=== PATIENT | female | born 1960 | race Caucasian/White ===

== ENCOUNTER 2021-07-04 09:02 | Outpatient (CLI) | payer BC ==
[2021-07-04 15:39] LABS: THYROID STIMULATING HORMONE 8.02 uIU/mL (0.34-5.60)
[2021-07-04 15:40] LABS: FREE T3 3.3 pg/mL (2.5-3.9)
[2021-07-04 15:41] LABS: FREE T4 (FREE THYROXINE) 0.86 ng/dL (0.58-1.64)
== END 2021-07-04 09:03 | disposition home or self-care (01) ==
LOC: LAB.S 09:02
PROVIDERS: ATTEND Internal Medicine Endocrinology, Diabetes & Metabolism
DX: E05.00 Thyrotoxicosis with diffuse goiter without thyrotoxic crisis or storm (principal)
CPT/HCPCS: 36415; 84439; 84443; 84481

== ENCOUNTER 2021-08-15 11:31 | Outpatient (CLI) | payer BC ==
--- NOTE | 2021-08-16 11:46 | XRAY Report ---
PROCEDURE: Ankle 3 View RT INDICATIONS: RIGHT ANKLE PAIN TECHNIQUE: 3 views of the ankle were acquired. COMPARISON: None. FINDINGS: Bones: No fractures or dislocations. Ankle mortise is normally aligned. Visualized osseous structu res appear osteopenic. No suspicious bony lesions. Soft tissues: No tibiotalar joint effusion. Achilles tendon appears normal. IMPRESSION: 1. No acute bony abnormality. Reviewed by: Constantino Schumacher MD on 08/16/2021 11:45 AM PDT Approved by: Constantino Schumacher MD on 08/16/2021 11:45 AM PDT Station ID: [id number]
== END 2021-08-15 11:32 ==
LOC: DI.S 11:31
PROVIDERS: ATTEND Physician Assistant Medical
DX: M25.571 Pain in right ankle and joints of right foot (principal)

== ENCOUNTER 2022-01-12 15:32 | Outpatient (CLI) | payer MEDICARE, BC ==
--- NOTE | 2022-01-12 16:46 | XRAY Report ---
PROCEDURE: Foot 3 View BILAT INDICATIONS: BILATERAL FOOT PAIN TECHNIQUE: 6 views of the foot were acquired. COMPARISON: None FINDINGS: Bones: No fractures or dislocations. Osteoarthritic changes are noted throughout bilateral midfoot a nd forefoot joints with joint space narrowing, subchondral sclerosis and cyst formation. Radiolucency involving medial aspect of bilateral distal medial cuneiform adjacent to first. The joints concernin g for subtle erosions in these areas. No suspicious bony lesions. Soft tissues: No tibiotalar joint effusion. Achilles tendon appears normal. IMPRESSION: 1. Midfoot and forefoot joint osteoarthritis. No fracture or dislocation. 2. Finding is concerning for right worse than left erosive changes involving bilateral first TMT join ts possibly related to inflammatory arthropathy. Reviewed by: Scot Link MD on 01/12/2022 4:45 PM PST Approved by: Scot Link MD on 01/12/2022 4:45 PM PST Station ID: [id number]
--- NOTE | 2022-01-12 16:47 | XRAY Report ---
PROCEDURE: Ankle 3 View BILAT INDICATIONS: BILATERAL ANKLE PAIN TECHNIQUE: 3 views of the ankle were acquired. COMPARISON: None FINDINGS: Bones: No fractures or dislocations. Ankle mortise is normally aligned. Mild osteoarthritic change s in bilateral tibiotalar joint with joint space narrowing and subchondral sclerosis. No suspicious b chelsy lesions. Soft tissues: No tibiotalar joint effusion. Achilles tendon appears normal. IMPRESSION: Bilateral ankle mortise is congruent. No ankle fracture or dislocation. No gross soft ti ssue abnormality. Mild lateral tibiotalar joint osteoarthritis. Reviewed by: Scot Link MD on 01/12/2022 4:46 PM PST Approved by: Scot Link MD on 01/12/2022 4:46 PM PST Station ID: [id number]
== END 2022-01-12 15:33 | disposition home or self-care (01) ==
LOC: DI 15:32 → DI.S 15:33
PROVIDERS: ATTEND Podiatrist
DX: M19.072 Primary osteoarthritis, left ankle and foot (principal); M19.071 Primary osteoarthritis, right ankle and foot

== ENCOUNTER 2022-04-23 12:59 | Outpatient (CLI) | payer MEDICARE, BC ==
[2022-04-23 15:13] LABS: FREE T3 3.12 pg/mL (2.5-3.9); THYROID STIMULATING HORMONE 2.88 uIU/mL (0.34-5.60)
[2022-04-23 15:14] LABS: FREE T4 (FREE THYROXINE) 0.75 ng/dL (0.58-1.64)
== END 2022-04-23 13:00 | disposition home or self-care (01) ==
LOC: LAB.S 12:59
PROVIDERS: ATTEND Internal Medicine Endocrinology, Diabetes & Metabolism
DX: E05.00 Thyrotoxicosis with diffuse goiter without thyrotoxic crisis or storm (principal)
CPT/HCPCS: 36415; 84439; 84443; 84481

== ENCOUNTER 2022-12-11 12:52 | Outpatient (CLI) | payer MEDICARE, BC ==
[2022-12-11 19:57] LABS: HCT - HEMATOCRIT 38.3 % (37.0-47.0); HGB - HEMOGLOBIN 11.9 g/dL (12.0-16.0)
[2022-12-11 20:32] LABS: % IRON SATURATION 8 % (20-50); IRON 37 ug/dL (28-170); TOTAL IRON BINDING CAPACITY 486 ug/dL (250-450); TRANSFERRIN 347 mg/dL (192-382)
[2022-12-11 20:36] LABS: FERRITIN 7.7 ng/mL (11.0-306.8)
[2022-12-11 20:40] LABS: FOLATE 15.36 ng/mL (5.90 - >24.8)
== END 2022-12-11 12:53 | disposition home or self-care (01) ==
LOC: LAB.S 12:52
DX: D64.9 Anemia, unspecified (principal)
CPT/HCPCS: 36415; 82607; 82728; 82746; 83010; 83540; 83615; 84466; 85014; 85018

== ENCOUNTER 2023-01-08 13:52 | Outpatient (CLI) | payer MEDICARE, BC ==
[2023-01-08 20:15] LABS: THYROID STIMULATING HORMONE 2.19 uIU/mL (0.34-5.60)
[2023-01-08 20:17] LABS: FREE T3 2.91 pg/mL (2.5-3.9); FREE T4 (FREE THYROXINE) 0.8 ng/dL (0.58-1.64)
== END 2023-01-08 13:53 | disposition home or self-care (01) ==
LOC: LAB.S 13:52
PROVIDERS: ATTEND Internal Medicine Endocrinology, Diabetes & Metabolism
DX: E05.00 Thyrotoxicosis with diffuse goiter without thyrotoxic crisis or storm (principal)
CPT/HCPCS: 36415; 84439; 84443; 84481